=== PATIENT | female | born 1950 | race Caucasian/White ===

== ENCOUNTER → 2016-11-28 | Outpatient (CLI) | payer MEDICARE, BC ==
[~2016-11-28] MED LIST: ALLEGRA-D 60 MG1 TER PO; ASPIRIN E.C. 8181 MG PO; CALCIUM600 M2 PO; CETIRIZINE10 MG PO; CINNAMON500 MG PO; EPA FISH OIL1000 MG PO; GLUCOSAMINE500 M2 PO; L-LYSINE500 M1 PO; LIPITOR 10MG10 MG PO; LISINOPRIL/HCTZ1 TA1 PO; LUTEIN20 M1 PO; MAXALT5 MG PO; MELOXICAM15 MG PO; MULTIPLE VITAMI1 CTB PO; PLAVIX 75MG TAB75 MG PO; PREMARIN0.3 MG PO; VERAPAMIL HCL240 M2 PO
== END ==
LOC: MC.RAD 10:00
DX: Z12.31 Encounter for screening mammogram for malignant neoplasm of breast (principal)

== ENCOUNTER → 2017-12-18 | Outpatient (CLI) | payer MEDICARE, BC | LOC: MC.RAD 11-29 09:40 | DX: Z12.31 Encounter for screening mammogram for malignant neoplasm of breast (principal) ==

== ENCOUNTER → 2018-12-26 | Outpatient (CLI) | payer MEDICARE, BC | LOC: MC.RAD 11:30 | DX: Z12.31 Encounter for screening mammogram for malignant neoplasm of breast (principal) ==

== ENCOUNTER 2019-06-29 21:54 | Emergency (ER) | payer MEDICARE, BC ==
[~2019-06-29] VITALS: Ht 162.6 cm; Wt 75.5 kg
[2019-06-29 22:04] VITALS: BP 120/74; TEMP 96.8
[2019-06-29 22:58] LABS: BASO # 0.1 (0.0-0.2); BASO % 0.9 % (0.0-2.0); EOS # 0.3 (0.0-0.7); GRAN # 2.7 (1.4-6.5); GRAN % 48.9 % (42.2-75.2); HEMATOCRIT 46.2 % (37.0-47.0); HEMOGLOBIN 15.6 g/dl (12.5-16.0); LYMPH # 2.1 (1.2-3.4); LYMPH % 37.4 % (20.0-51.0); MEAN CELL VOLUME 86 fl (80.0-100.0); MEAN CORPUSCULAR HEMOGLOBIN 29 pg (27.0-31.0); MEAN CORPUSCULAR HGB CONC 34 g/dl (33.0-37.0); MEAN PLATELET VOLUME 8.7 fl (7.4-10.4); MONO # 0.4 (0.1-0.6); MONO % 7.6 % (1.7-9.3); PLATELET COUNT 286 K/mm3 (130-400); REDCELL DISTRIBUTION WIDTH-CV 13.2 % (11.5-14.5)
[2019-06-29 23:18] LABS: ALANINE AMINOTRANSFERASE 18 U/L (9-52); ALBUMIN 4.2 gm/dL (3.5-5.0); ALKALINE PHOSPHATASE 75 U/L (50-136); ANION GAP 11 mmol/L (7-16); AST,SGOT 26 U/L (15-37); BILIRUBIN,TOTAL 0.5 mg/dL (0.0-1.0); BLOOD UREA NITROGEN 19 mg/dL (7-17); CALCIUM 9.5 mg/dL (8.4-10.2); CARBON DIOXIDE 24 mmol/L (22-30); CHLORIDE 103 mmol/L (98-107); CREATININE, serum 0.55 (0.52-1.25); GLUCOSE 107 mg/dL (74-106); POTASSIUM 3.7 mmol/L (3.4-5.0); SODIUM 137 mmol/L (137-145); TOTAL PROTEIN 7.2 gm/dL (6.4-8.2)
[2019-06-29 23:26] LABS: C-REACTIVE PROTEIN 0.9 mg/dL (0.0-0.9); MAGNESIUM 2.2 mg/dL (1.6-2.3)
[2019-06-29 23:36] LABS: TROPONIN-I < 0.012 ng/mL (0.000-0.035)
[2019-06-30 00:32] VITALS: PULSE 63
== END 2019-06-30 00:32 | disposition home or self-care (01) ==
LOC: COL.ER 21:54
PROVIDERS: Nurse Practitioner
DX: G43.909 Migraine, unspecified, not intractable, without status migrainosus (principal); R00.2 Palpitations; E78.5 Hyperlipidemia, unspecified; J45.909 Unspecified asthma, uncomplicated; I25.10 Atherosclerotic heart disease of native coronary artery without angina pectoris; I10 Essential (primary) hypertension; Z88.2 Allergy status to sulfonamides; Z79.82 Long term (current) use of aspirin
CPT/HCPCS: J1200; J1885; J2765; J7030

== ENCOUNTER → 2019-12-31 | Outpatient (CLI) | payer MEDICARE, BC | LOC: MC.RAD 12:44 | DX: Z12.31 Encounter for screening mammogram for malignant neoplasm of breast (principal); N64.89 Other specified disorders of breast ==

== ENCOUNTER → 2020-01-08 | Outpatient (CLI) | payer MEDICARE, BC | LOC: MC.RAD 14:21 | DX: N63.20 Unspecified lump in the left breast, unspecified quadrant (principal); N64.89 Other specified disorders of breast; R92.1 Mammographic calcification found on diagnostic imaging of breast ==

== ENCOUNTER → 2020-07-08 | Outpatient (CLI) | payer MEDICARE, BC | LOC: MC.RAD | DX: R92.8 Other abnormal and inconclusive findings on diagnostic imaging of breast (principal) ==

== ENCOUNTER → 2021-01-22 | Outpatient (CLI) | payer MEDICARE, BC | LOC: MC.RAD 12:55 | DX: Z12.31 Encounter for screening mammogram for malignant neoplasm of breast (principal) ==

== ENCOUNTER → 2023-02-27 | Outpatient (CLI) | payer MEDICARE, BC | LOC: MC.RAD 10:27 | DX: Z12.31 Encounter for screening mammogram for malignant neoplasm of breast (principal) ==

== ENCOUNTER 2024-02-15 08:49 | Inpatient (IN) | payer MEDICARE, BC ==
[~2024-02-15] VITALS: Ht 10.2 cm; Wt 71.0 kg
[~2024-02-15 08:49] MED LIST changes: -ALLEGRA-D 60 MG1 TER PO; +ALLEGRA-D TABLE1 TAB PO; -CALCIUM600 M2 PO; -EPA FISH OIL1000 MG PO; +GLUCOSAMINE 1000 PO; -GLUCOSAMINE500 M2 PO; -L-LYSINE500 M1 PO; -LIPITOR 10MG10 MG PO; +LIPITOR20 MG PO; -LISINOPRIL/HCTZ1 TA1 PO; +MAXALT10 MG PO; -MAXALT5 MG PO; +MULTIPLE VITAMI1 CAP PO; -MULTIPLE VITAMI1 CTB PO; +OMEGA-3 1000 MG1 CAP PO; +OSCAL 500 TAB500 MG PO; +PHARMASSURE L-500 MG PO; +PRINZIDE 12.5 M1 TA1 PO
[2024-02-15] MEDS ORDERED: NS 1,000 ML IV ONE (09:30)
[2024-02-15 09:39] LABS: BASO % 0.3 % (0.0-2.0); EOS % 0.3 % (0.0-4.0); GRAN # 11.9 K/mm3 (1.4-6.5); GRAN % 87.5 % (42.2-75.2); HEMATOCRIT 42.3 % (37.0-47.0); HEMOGLOBIN 14.6 g/dl (12.5-16.0); LYMPH # 0.9 K/mm3 (1.2-3.4); LYMPH % 6.8 % (20.0-51.0); MEAN CELL VOLUME 86 fl (80.0-100.0); MEAN CORPUSCULAR HEMOGLOBIN 30 pg (27-31); MEAN CORPUSCULAR HGB CONC 35 g/dl (33.0-37.0); MEAN PLATELET VOLUME 8.4 fl (7.4-10.4); MONO # 0.6 K/mm3 (0.1-0.6); MONO % 4.6 % (1.7-9.3); PLATELET COUNT 274 K/mm3 (130-400); RED BLOOD COUNT 4.92 M/mm3 (4.10-5.30); REDCELL DISTRIBUTION WIDTH-CV 13.6 % (11.5-14.5)
[2024-02-15 09:45] LABS: INR 1.1 (0.8-3.0); PROTHROMBIN TIME 11.9 SECONDS (9.7-12.8)
[2024-02-15 09:56] LABS: ALANINE AMINOTRANSFERASE 9 U/L (0-55); ALBUMIN 3.1 g/dL (3.4-4.8); ALKALINE PHOSPHATASE 86 U/L (40-150); ANION GAP 14 mmol/L (7-16); AST,SGOT 15 U/L (5-34); BILIRUBIN,TOTAL 1.4 mg/dL (0.2-1.2); BLOOD UREA NITROGEN 17 mg/dL (10-20); CALCIUM 9.9 mg/dL (8.4-10.2); CHLORIDE 101 mEq/L (98-107); CREATININE, serum 0.77 mg/dL (0.57-1.11); GLUCOSE 121 mg/dL (70-99); LIPASE 13 U/L (8-78); POTASSIUM 3.4 mEq/L (3.5-4.5); SODIUM 136 mEq/L (136-145); TOTAL PROTEIN 7.3 g/dl (6.2-8.1)
[2024-02-15 10:02] LABS: TROPONIN-I < 0.010 ng/mL (0.00-0.033)
[2024-02-15 10:16] LABS: COLLECTION METHOD CLEAN CATCH
[2024-02-15 10:17] LABS: PH 6.5 (5.0-8.5); URINE APPEARANCE SL. CLOUDY (CLEAR/HAZY); URINE COLOR YELLOW (YELLOW)
[2024-02-15 10:18] LABS: URINE GLUCOSE NEGATIVE (NEGATIVE); URINE KETONE TRACE (NEGATIVE); URINE PROTEIN(semi-quant) 1+ (NEGATIVE)
[2024-02-15 10:19] LABS: URINE NITRATE NEGATIVE (NEGATIVE)
[2024-02-15 10:20] LABS: URINE BLOOD 3+ (NEGATIVE)
[2024-02-15 10:22] LABS: MUCOUS PRESENT (NOT PRESENT); URINE BACTERIA MODERATE /hpf (NONE SEEN); URINE CALCIUM OXALATE CRYSTAL PRESENT (NOT PRESENT)
[2024-02-15] MEDS ORDERED: NS 100 ML IV SCH (11:09)
[2024-02-15] MEDS ORDERED: Iohexol 300 - 100 ML VIAL IV ONE (11:10)
[2024-02-15] MEDS ORDERED: fentaNYL 50 MCG/ML 2 ML VIAL IV ONE (12:15)
[2024-02-15] MEDS ORDERED: Acetaminophen 325 MG TAB PO PRN (12:30)
[2024-02-15] MEDS ORDERED: Ondansetron 4 MG/2 ML VIAL IV PRN (12:30)
[2024-02-15] MEDS ORDERED: NS 1,000 ML IV SCH (12:30)
[2024-02-15] MEDS ORDERED: metroNIDAZOLE 100 ML IV SCH (12:45)
[2024-02-15] MEDS ORDERED: Morphine 4 MG/ML VIAL IV PRN (12:45)
[2024-02-15 13:00] VITALS: BP_SYST 145
[2024-02-15] MEDS ORDERED: ISOPTIN SR120 MG PO (13:32)
[2024-02-15] MEDS ORDERED: PHARMASSURE ZIN50 MG PO (13:41)
[2024-02-15] MEDS ORDERED: VITAMIN D31000 IU PO (13:41)
[2024-02-15] MEDS ORDERED: PROAIR HFA0.09 MG/AC IH (13:42)
[2024-02-15 13:46] VITALS: BP 145/80; PULSE 86; TEMP 97.6
--- NOTE | 2024-02-15 13:46 | NUR ---
Patient to room 347 from the ER, with the patient. Patient 1xassist. A&Ox4. VSS. IV CDI. Reports pain in lower ABD. Nurse oriented the patient to location, room and call light. Patient NPO and aware. Call light within reach. Bed alarm on
[2024-02-15 15:32] VITALS: BP 142/80; PULSE 74; TEMP 98.7
[2024-02-15] MEDS ORDERED: SUMAtriptan 25 MG TAB PO PRN (15:45)
[2024-02-15 15:52] VITALS: BP_SYST 142
[2024-02-15] MEDS ORDERED: Heparin 5,000 UNITS/ML 1 ML VIAL SQ SCH (16:00)
[2024-02-15] MEDS ORDERED: Albuterol 0.083% Neb Soln 2.5 MG/3 ML UD IH PRN (16:00)
[2024-02-15 20:05] VITALS: BP 156/80; PULSE 77; TEMP 98.6
[2024-02-15] MEDS ORDERED: Atorvastatin 20 MG TAB PO SCH (21:00)
[2024-02-15] MEDS ORDERED: Verapamil SR 120 MG TAB PO SCH (21:00)
--- NOTE | 2024-02-15 21:00 | NUR ---
Assessment complete. A&Ox3. Denies pain/nausea/shortness of breath. VS stable. Tolerated clear liquids. Voiding without difficulty. Right forearm 20g with NS@100ml/hr infusing without difficulty. Plan of care discussed for this shift to include meds/pain control/calling for questions/concerns. Verbalizes understanding. Call light in reach. Will monitor.
--- NOTE | 2024-02-15 22:31 | NUR ---
Patient sitting up in bed noted to be talking to Violeta RN. Patient is A&Ox4. No acute distress noted and patient currently denies any N/V/D or pain. Patient c/o some watery eyes and stuffy nose she associates with allergies. Patient has a right 20g forearm IV, noted to be clean, dry and intact, wrapped with AC bandage for comfort. NS is infusing at a rate of 100mL/hr. Patient tolerating well. Patient educated to call nurse if she needs to use the bathroom. Patient verbalized understanding, bed lowered and locked. Call fall within reach.
[2024-02-15 23:52] VITALS: BP 153/82; PULSE 78; TEMP 98.6
[2024-02-16] VITALS (11 sets, daily range): BP systolic 125–152; BP diastolic 74–80; PULSE 71–76; TEMP 97.8–98.3
--- NOTE | 2024-02-16 05:22 | NUR ---
Patient rested well this shift. Denied pain/nausea/shortness of breath. Tolerating clear liquids without difficulty. Right forearm with NS@100ml/hr infusing without difficulty. Denies current needs. Call light in reach. Will monitor.
[2024-02-16 06:21] LABS: BASO % 0.5 % (0.0-2.0); EOS # 0.1 K/mm3 (0.0-0.7); EOS % 1.5 % (0.0-4.0); GRAN # 5.4 K/mm3 (1.4-6.5); GRAN % 74.3 % (42.2-75.2); HEMATOCRIT 36.9 % (37.0-47.0); HEMOGLOBIN 12.8 g/dl (12.5-16.0); LYMPH # 1.3 K/mm3 (1.2-3.4); LYMPH % 17.4 % (20.0-51.0); MEAN CELL VOLUME 84 fl (80.0-100.0); MEAN CORPUSCULAR HEMOGLOBIN 29 pg (27-31); MEAN CORPUSCULAR HGB CONC 35 g/dl (33.0-37.0); MONO # 0.4 K/mm3 (0.1-0.6); PLATELET COUNT 247 K/mm3 (130-400); RED BLOOD COUNT 4.39 M/mm3 (4.10-5.30); REDCELL DISTRIBUTION WIDTH-CV 13.2 % (11.5-14.5)
--- NOTE | 2024-02-16 06:38 | NUR ---
Bedside report given to JEREMY David.
[2024-02-16 06:39] LABS: CALCIUM 8.7 mg/dL (8.4-10.2); CREATININE, serum 0.61 mg/dL (0.57-1.11); POTASSIUM 3.3 mEq/L (3.5-4.5)
[2024-02-16] MEDS ORDERED: FLONASEALLERGY NS (08:33)
--- NOTE | 2024-02-16 08:45 | NUR ---
Patient resting in bed. Reports lingering headache. Not interested in imitrx, but wanting tylenol. Patient tolerating clear liquid tray. Hot decaf tea provided, she does not tolerate caffine. IVF as ordered. She denies nausea. RT called for her requested inhauler. Will speak with physican about her medication request.
--- NOTE | 2024-02-16 09:59 | NUR ---
Initial visit; Patient and her thanked Instructional Support Specialist for looking in on Janet and letting her know of the availability of spiritual care at our hospital. Patient thanked Instructional Support Specialist though stated that she is from [facility]. Instructional Support Specialist said someone will likely check on her when she lets them know she is here with us at [facility].
--- NOTE | 2024-02-16 10:29 | NUR ---
Patient sitting up in chair with her significant other at bedside. She ambulated halls with therapy and did well. Denies needs.
--- NOTE | 2024-02-16 11:34 | NUR ---
pastoral worker met with pt and her two friends at bedside, she permitted to stay, to discuss discharge planning. pt reports to live with her , Byron [phone] in [place]. She sees Dr. iL for PCP needs and obtains medications from [facility] with no difficulties. She verified to have Medicare A/B and [employer] insurance. Pt is independent with ADLS and uses no DME. She reports her [facility] is at home listing her , then children. Discharge Plan: home
--- NOTE | 2024-02-16 11:54 | NUR ---
Primary nurse denied the need for report.
[2024-02-16] MEDS ORDERED: Fluticasone Nasal 50 MCG/Spray 16 GM BOTTLE NS SCH (13:21)
[2024-02-16] MEDS ORDERED: [UNRECOGNIZED DRUG - REMARK] PO SCH (13:22)
[2024-02-16] MEDS ORDERED: Lisinopril 20 MG TAB PO SCH (13:30)
[2024-02-16] MEDS ORDERED: LORATADINE 5 MG PO SCH (14:00)
[2024-02-16] MEDS ORDERED: PSEUDOEPHEDRINE 120 MG PO SCH (14:00)
--- NOTE | 2024-02-16 15:07 | NUR ---
ANNELISE attended interdisciplinary rounding with team and reports pt can likely discharge tomorrow to home.
--- NOTE | 2024-02-16 17:15 | NUR ---
Patient sitting up in chair. Diet progressed and dietary made aware to provide education. Orders to INT fluids. Minimal report of pain or headache. She is hopeful for discharge home tmrw.
--- NOTE | 2024-02-16 18:40 | NUR ---
Ambar ambulated halls with her spouse. Tolerated lwo fiber dinner. SHe is sitting up in chair. Bedside report to Violeta LUNA
--- NOTE | 2024-02-16 21:20 | NUR ---
Assessment complete. A&Ox3. Denies nausea/shortness of breath. Rating pain 2/10 to left lower quadrant-described as an intermittent ache. States she had a large BM. Has tolerated diet. Ambulated in the hallways. Voiding without difficulty. Plan of care discussed for this shift to include meds/pain control/calling for questions/concerns. Verbalizes understanding. Call light in reach. Will monitor.
--- NOTE | 2024-02-16 23:36 | NUR ---
Patient called requesting tylenol to help her sleep-rating pain 2/10-general body aches. Tylenol given per dr order. Will monitor.
[2024-02-17] VITALS: BP 148/73; PULSE 72; TEMP 98.9
[2024-02-17 00:47] VITALS: BP_SYST 148
[2024-02-17 04:00] VITALS: BP 120/72; PULSE 73; TEMP 98.2
[2024-02-17 04:12] VITALS: BP_SYST 120
--- NOTE | 2024-02-17 04:47 | NUR ---
Patient had an uneventful night. Rested well later this shift. VS remained stable. Tolerated Low fiber diet without nausea. Did c/o mild left lower quadrant pain but stated she thought she had overdone her walk in the halls. Denies current needs. Call light in reach. Will monitor.
[2024-02-17 06:29] LABS: BASO % 0.5 % (0.0-2.0); EOS # 0.2 K/mm3 (0.0-0.7); EOS % 3.4 % (0.0-4.0); GRAN # 4.2 K/mm3 (1.4-6.5); GRAN % 65.7 % (42.2-75.2); HEMATOCRIT 37.4 % (37.0-47.0); HEMOGLOBIN 12.8 g/dl (12.5-16.0); LYMPH # 1.3 K/mm3 (1.2-3.4); LYMPH % 20.6 % (20.0-51.0); MEAN CELL VOLUME 84 fl (80.0-100.0); MEAN CORPUSCULAR HEMOGLOBIN 29 pg (27-31); MEAN CORPUSCULAR HGB CONC 34 g/dl (33.0-37.0); MEAN PLATELET VOLUME 8.5 fl (7.4-10.4); MONO # 0.6 K/mm3 (0.1-0.6); PLATELET COUNT 269 K/mm3 (130-400); RED BLOOD COUNT 4.45 M/mm3 (4.10-5.30); REDCELL DISTRIBUTION WIDTH-CV 13.1 % (11.5-14.5)
[2024-02-17 06:39] LABS: CREATININE, serum 0.67 mg/dL (0.57-1.11); POTASSIUM 3.5 mEq/L (3.5-4.5)
[2024-02-17 08:19] VITALS: BP 122/74; PULSE 83; TEMP 98.6
[2024-02-17] MEDS ORDERED: LEVAQUIN 750MG750 M1 PO (08:38)
[2024-02-17] MEDS ORDERED: FLAGYL500 MG PO (08:39)
[2024-02-17 09:15] VITALS: BP_SYST 122
--- NOTE | 2024-02-17 11:55 | NUR ---
Patient has done well this am. Tolerated breakfast. Minimal reports of pain. Denies nausea. IV levaquin completed. Int dc. Her ready to take her home. Discharge education given. Medication list and last dose taken reviewed. Patient ambulated out with all belongings
--- NOTE | 2024-02-17 12:52 | NUR ---
Data: Patient and Byron accepted spiritual care visit offered during Urologic Nurse rounds. Life review. Discussion about grandchildren. Assessment: Hopeful and excited to discharge today. Plan of Care: Patient has since been discharged.
== END 2024-02-17 12:47 | disposition home or self-care (01) | DRG 392 ==
LOC: COL.ER 08:49 → SURG 12:35
PROVIDERS: Family Medicine; ADMIT Internal Medicine
DX: K57.20 Diverticulitis of large intestine with perforation and abscess without bleeding (principal); I25.10 Atherosclerotic heart disease of native coronary artery without angina pectoris; G43.909 Migraine, unspecified, not intractable, without status migrainosus; I10 Essential (primary) hypertension; Z79.82 Long term (current) use of aspirin; Z79.899 Other long term (current) drug therapy
CPT/HCPCS: J1644; J1836; J1956; J3010; J7030; Q9967

== ENCOUNTER → 2024-03-04 | Outpatient (CLI) | payer MEDICARE, BC ==
[~2024-03-04] MED LIST changes: +FLAGYL500 MG PO; +FLONASEALLERGY NS; +ISOPTIN SR120 MG PO; +LEVAQUIN 750MG750 M1 PO; +PHARMASSURE ZIN50 MG PO; +PROAIR HFA0.09 MG/AC IH; +VITAMIN D31000 IU PO
== END ==
LOC: MC.RAD 13:50
DX: Z12.31 Encounter for screening mammogram for malignant neoplasm of breast (principal)